=== PATIENT | male | born 1990 | race African-American/Black ===

== ENCOUNTER 2025-04-16 22:49 | Emergency (ER) | payer OTHER, BC ==
[~2025-04-16] VITALS: Ht 172.7 cm; Wt 73.0 kg
[2025-04-16 22:53] VITALS: BP 117/61; TEMP 36.6; O2SAT 98
[2025-04-16 23:04] VITALS: PULSE 68; RESP 16; O2SAT 100
[2025-04-16] MEDS ORDERED: CYCL10TA21 MT (23:38)
[2025-04-16] MEDS ORDERED: NAPR-1176 MT (23:38)
[2025-04-17] MEDS: CYCLOBENZAPRINE 10MG TABLET PO ONE (00:18)
[2025-04-17] MEDS: NAPROXEN 250MG TABLET PO ONE (00:19)
== END 2025-04-17 00:25 | disposition home or self-care (01) ==
LOC: ER 22:49
DX: S09.90XA Unspecified injury of head, initial encounter (principal); M54.2 Cervicalgia; V49.40XA Driver injured in collision with unspecified motor vehicles in traffic accident, initial encounter; Y93.89 Activity, other specified; Y92.89 Other specified places as the place of occurrence of the external cause; Y99.8 Other external cause status
CPT/HCPCS: 99283